=== PATIENT | female | born 1980 | race Caucasian/White ===

== ENCOUNTER 2016-08-11 09:00 | Emergency (ER) | payer OTHER ==
[~2016-08-11] VITALS: Ht 172.7 cm; Wt 113.6 kg
[2016-08-11 09:02] VITALS: BP 141/96; RESP 20; O2SAT 100
--- NOTE | 2016-08-11 09:17 | ED.REPORT ---
HPI-Sore Throat ONLY HPI/PE done Aug 11, 2016 ED Provider: Edilberto Garcia DO The patient is an otherwise healthy 36 year old female who presents to the emergency department complaining of a sore throat that began 2 days ago. She has also noticed pain with swallowing and a fever. She has not been exposed to any known sick contacts. She is still able to eat and drink normally. She has been taking over the counter Sudafed with some relief. Nursing Notes Stated Complaint: POSS STREP Chief Complaint: ENT & Mouth Nursing Notes Reviewed: Yes Allergies: Coded Allergies: No Known Allergies (Verified , 07/13/03) Uncoded Allergies: No Known Allergies (Allergy, Unknown, 07/13/03) Scheduled Amoxicillin/Clav K 875-125 mg (Augmentin 875-125 mg) 1 Each Tablet 1 TABLET PO BID Scheduled PRN Naproxen (Naproxen) 500 Mg Tab 500 MG PO BID PRN PRN For Pain General Time Seen by MD: 09:10 Chief Complaint Sore throat Hx Obtained From: Patient Arrived By: Walk-in Onset Occurred: 2 days ago Symptom Duration: Since onset Location: : Tonsil left: Tonsil right Quality: Painful Severity: Current: Moderate Severity: Maximum: Severe Context: Immunization Status General: All up to date Recent Healthcare: No recent doctor visit, No recent hospitalization Similar Sx Previous: No Past Medical History Past Medical History None Family History Noncontributory Social History Other Social History: Good social support, Local resident Ambulatory Status Independent Review of Systems Constitutional: Reports: Fever Ears / Nose / Throat: Reports: Sore throat, Throat pain GI: Denies: Dysphagia Complete sys rev & neg: except as marked. Physical Exam Initial Vital Signs Vital Signs (First) Date Time Temp Pulse Resp B/P Pulse Ox O2 Delivery O2 Flow Rate FiO2 08/11/16 09:02 37.3 90 20 141/96 100 Room Air Initial VS: Reviewed Respiratory: Breath sounds normal, Clear to auscultation, No respiratory distress Cardiovascular: Regular rate & rhythm, Heart sounds normal, Intact distal pulses Abdomen / GI: Soft, Non-tender, No guarding, No rebound, No distention Extremities: Vascular intact, Neuro intact, No swelling, No tenderness Skin: Warm, Dry, No cyanosis Neurologic: Alert, Oriented, Nonfocal Psychiatric: Mood/affect normal, Behavior normal, Normal thought content General/Constitutional: Awake, Alert, Cooperative ENT: Airway patent, Mucous membranes moist, No peritonsillar abscess Pharynx / Tonsils / Uvula: Positive: Pharyngeal erythema, Tonsillar erythema L , Tonsillar erythema R, Tonsillar exudate L, Tonsillar exudate R, Tonsillar swelling L, Tonsillar swelling R, Negative: Peritonsil abscess L, Peritonsil abscess R Neck: Atraumatic, Supple, No midline vertebral tend Interpretation & Diagnostics Interpretation & Diagnostics: Strep test: positive Re-Eval/Medical Decision Source of Hx: Old records Re-Evaluation/Progress : Time of Eval: 09:20 Re-Evaluation/Progress Note: Discussed plan for discharge. All questions were addressed. Counseled Regarding: Diagnosis, Lab results, Need for follow-up, When/why to return to ED Discharge & Departure Primary Impression: Strep pharyngitis Disposition: Home Discharge Condition All VS Reviewed: Yes Condition: Stable Patient Instructions: Strep Throat (ED) Additional Instructions: Thank you for entrusting us with your care today. Your strep test today was positive. Use the oral antibiotics as prescribed. Use Naproxen and Tylenol as needed for your discomfort and fever. Followup with your regular doctor if your symptoms are not improving within the next few days. Please return to the emergency department for difficulty swallowing, difficulty breathing, vomiting, inability to keep fluids down, or any other new or concerning symptoms. Referrals: Paris Goldstein (PCP) Scribe Attestation Portions of this note were transcribed by Ayaka Giordano. I, Dr. Garcia personally performed the history, physical exam and medical decision-making; I reviewed and confirmed the accuracy of the information in the transcribed note. Signed by: Simeon Fischer, 08/11/2016 at 0930. copies to: Paris Goldstein Timothy S DO Aug 11, 2016 09:17 Ayaka Giordano Aug 11, 2016 09:23
[2016-08-11] MEDS ORDERED: NPR500T PO (09:25)
[2016-08-11] MEDS ORDERED: AMOX-366 PO (09:25)
== END 2016-08-11 09:30 | disposition home or self-care (01) ==
LOC: SED 09:00
DX: J02.0 Streptococcal pharyngitis (principal)